=== PATIENT | female | born 1940 | race Caucasian/White ===

== ENCOUNTER 2023-04-13 12:07 | Outpatient (OUT) | payer MEDICARE, OTHER, SELFPAY ==
[2023-04-14 04:07] LABS: Vitamin B12 649 pg/mL (232-1245)
== END 2023-04-13 12:08 | disposition home or self-care (01) ==
LOC: LAB 12:07
PROVIDERS: PCP Family Medicine; Visit Provider Nurse Practitioner Adult Health
DX: F03.C2 Unspecified dementia, severe, with psychotic disturbance (principal)
CPT/HCPCS: 36415; 82607; 82746

== ENCOUNTER 2023-05-28 23:49 | Emergency (ER) | payer MEDICARE, OTHER, SELFPAY ==
[2023-05-28 23:55] VITALS: BP 188/96; PULSE 74; RESP 16; TEMP 36.1; O2SAT 96; BMI 26.6
--- NOTE | 2023-05-29 00:07 | ED_ITS ---
HPI - Altered Mental Status General Chief Complaint: Altered Mental Status Stated Complaint: altered mental state Time Seen by Provider: 05/29/23 00:07 History of Present Illness HPI narrative: Patient presents to emergency department for complaint of confusion. Family brings the patient in stating that she has a history of dementia. She states in the last 3 weeks she has seen Dr. Kelly for insomnia, and paranoia. She used to take Ativan 5 mg twice a day and wasn't working so she was switched to Seroquel 25 mg twice a day. Patient has been taking that she seems to be able to sleep about every other night but then every other night they find her wandering around to her son's house in the middle the night. Incident starts when the patient thinks that her is not her and is a member to the house trying to sleep with her. The patient gets angry, aggressive, agitated and subsequently takes off to her son's house. Family is concerned because she was wondering today and the son was not even in the house where she was having. The patient does not think that his immunizations. She does not have any somatic complaints. Has not been sick with anything recently. MD complaint: Reports altered mental status Related Data Previous Rx's Medication Instructions Recorded olanzapine 10 mg tablet (Zyprexa) 10 mg PO QPM #20 tabs 05/29/23 olanzapine 10 mg tablet (Zyprexa) 10 mg PO QPM #20 tabs 05/29/23 Allergies Allergy/AdvReac Type Severity Reaction Status Date / Time No Known Drug Allergies Allergy Verified 05/28/23 23:58 Review of Systems ROS Status of ROS 10 or more systems reviewed and unremarkable except as noted in history and below Exam Narrative Exam Narrative: Nurses notes and vital signs reviewed and patient is not hypoxic. General: Nontoxic, Well-appearing and in no apparent distress. Skin: Warm, dry, no pallor noted. No Rash Head: Normocephalic, atraumatic. Neck: Supple, non-tender. Eye: Pupils are equal, round and EOMI. No scleral icterus. Ears, Nose, Mouth, and Throat: TM clear, no posterior oropharynx erythema or nasal mucosal hypertrophy, uvula is mid-line Oral mucosa is moist Cardiovascular: Regular Rate and Rhythm without murmur, gallop or rub. Respiratory: No accessory muscle use or respiratory distress. Lungs are clear to auscultation, no wheezing, rales or rhonchi Chest Wall: no tenderness Back: No midline thoracic or lumbar vertebral tenderness. No CVA tenderness Musculoskeletal: normal ROM, no calf or popliteal tenderness, no lower extremity edema/swelling GI: Abdomen is soft, non-distended. Normal bowel sounds. No masses appreciated. No tenderness to palpation. No rebound, guarding, or rigidity noted. Neurological: A&O x2. No cranial nerve dysfunction observed. No truncal agustin rico. Moves all extremities. Sensation intact. Psychiatric: Cooperative and interactive. Normal mood and affect. Constitutional Vital Signs, click to edit/add: Last Vital Signs Temp 97.0 F L 05/28/23 23:55 Pulse 74 05/28/23 23:55 Resp 16 05/28/23 23:55 BP 188/96 H 05/28/23 23:55 Pulse Ox 96 05/29/23 03:44 O2 Del Method Room Air 05/29/23 03:44 Course Vital Signs Vital signs: Vital Signs Temperature 97.0 F L 05/28/23 23:55 Pulse Rate 74 05/28/23 23:55 Respiratory Rate 16 05/28/23 23:55 Blood Pressure 188/96 H 05/28/23 23:55 Pulse Oximetry 96 05/28/23 23:55 Oxygen Delivery Method Room Air 05/28/23 23:55 Temperature 97.0 F L 05/28/23 23:55 Pulse Rate 74 05/28/23 23:55 Respiratory Rate 16 05/28/23 23:55 Blood Pressure 188/96 H 05/28/23 23:55 Pulse Oximetry 96 05/29/23 03:44 Oxygen Delivery Method Room Air 05/29/23 03:44 MDM - Altered Mental Status MDM Narrative Medical decision making narrative: Labs studies were done. Patient has trace leukocyte esterase without any other symptoms. We will send this for culture. Patient was given 1 mg of Ativan by mouth and 75 mg of Seroquel 2 at least increase one of the dosages to 100 mg. Patient remains awake without any somnolence. She is cooperative. We will give the patient some Zyprexa see if that helps her sleep. That hopefully she will be discharged with one of these medications to take at home to see neurology on Tuesday morning and her family doctor. At this time the patient is without objective evidence of an acute process requiring hospitalization or inpatient management. The patient has remained hemodynamically stable. No additional indication for emergent studies at this time. I answered all questions. Discussed discharge instructions including standard anticipatory guidance and what should prompt a return to the emergency department, including if they get worse are not getting better or develops any new or concerning symptoms. I've given them specific time frame in which to follow-up, and who to follow-up with. The patient demonstrates understanding. Patient is nontoxic and stable for discharge with outpatient follow-up. This note was created with the assistance of a speech recognition program. Although the intention is to generate documents that actually reflects the content of the visit, no guarantees can be provided that every mistake has been identified and corrected by editing. Differential Diagnosis Differential diagnosis: Likely dementia Lab Data Attestation: I reviewed the patient's lab results. Labs: Lab Results 05/29/23 05/29/23 Range/Units 00:05 00:57 WBC 7.8 (4.0-11.0) 10^3/uL RBC 4.41 (4.20-5.40) 10^6/uL Hgb 13.4 (12.0-16.0) g/dL Hct 41.9 (36.0-48.0) % MCV 95.0 (81.0-99.0) fL MCH 30.4 (26.7-34.0) pg MCHC 32.0 (29.9-35.2) g/dL RDW 12.5 (11.0-15.0) % Plt Count 214 (150-450) 10^3/uL MPV 10.3 (9.5-13.5) fL Neut % (Auto) 62.5 (43.0-75.0) % Lymph % (Auto) 27.4 (20.5-60.0) % Travis % (Auto) 8.8 (1.7-12.0) % Eos % (Auto) 0.8 L (0.9-7.0) % Baso % (Auto) 0.4 (0.2-2.0) % Neut # (Auto) 4.9 (1.4-6.5) 10^3/uL Lymph # (Auto) 2.1 (1.2-3.8) 10^3/uL Travis # (Auto) 0.7 (0.3-0.8) 10^3/uL Eos # (Auto) 0.1 (0.0-0.7) 10^3/uL Baso # (Auto) 0.0 (0.0-0.1) 10^3/uL Abs Immat Gran (auto) 0.01 (0.00-0.03) 10^3/uL Imm/Tot Granulo (auto) 0.1 (0.0-0.5) % Sodium 140 (136-145) mmol/L Potassium 3.6 (3.5-5.1) mmol/L Chloride 101 (98-107) mmol/L Carbon Dioxide 33.5 H (21.0-32.0) mmol/L Anion Gap 9.1 BUN 19.0 H (7.0-18.0) mg/dL Creatinine 0.94 (0.55-1.02) mg/dL Est GFR ( Amer) >60 (>=60) Est GFR (Non-Af Amer) 57 L (>=60) BUN/Creatinine Ratio 20.2 Glucose 103 (74-106) mg/dL Calcium 9.1 (8.5-10.1) mg/dL Total Bilirubin 0.3 (0.2-1.0) mg/dL AST 23 (15-37) U/L ALT 27 (14-59) U/L Alkaline Phosphatase 88 (46-116) U/L Troponin I High Sens 9.6 (4.0-51.3) pg/mL Total Protein 8.1 (6.4-8.2) g/dL Albumin 4.5 (3.4-5.0) g/dL Globulin 3.6 g/dL Albumin/Globulin Ratio 1.2 Urine Color Lt. yellow (YELLOW) Urine Clarity Clear (CLEAR) Urine pH 6.0 (5.0-9.0) Ur Specific Spearfish 1.020 (1.005-1.025) Urine Protein Negative (NEG/TRACE) mg/dL Urine Glucose (UA) Negative (NEGATIVE) mg/dL Urine Ketones Negative (NEGATIVE) mg/dL Urine Occult Blood Large A (NEGATIVE) Urine Nitrite Negative (NEGATIVE) Urine Bilirubin Negative (NEGATIVE) Urine Urobilinogen 0.2 (0.2-1.0) EU/dL Ur Leukocyte Esterase Small A (NEGATIVE) Urine RBC 5-10 A (0-2) #/HPF Urine WBC 0-2 A (NONE SEEN) #/HPF Ur Squamous Epith Cells Few A (NONE/RARE) #/LPF Urine Crystals None seen (None Seen) #/HPF Urine Bacteria None seen (NONE SEEN) #/HPF Urine Casts None seen (NONE SEEN) #/LPF Urine Mucus None seen (NONE SEEN) Ur Culture Indicated? No Discharge Plan Discharge Chief Complaint: Altered Mental Status Clinical Impression: Insomnia, Dementia Patient Disposition: Home, Self-Care Time of Disposition Decision: 03:26 Condition: Good Mode of Transportation: Private Vehicle Prescriptions / Home Meds: New olanzapine [Zyprexa] 10 mg tablet 10 mg PO QPM Qty: 20 0RF olanzapine [Zyprexa] 10 mg tablet 10 mg PO QPM Qty: 20 0RF Instructions: Dementia (ED), Insomnia (ED) Stand Alone Forms: Portal Instructions Referrals: Laila Galdamez MD [Primary Care Provider] - 1 week Discharge Date/Time: 05/29/23 03:45
--- NOTE | 2023-05-29 00:10 | PC.NURSE ---
patient brought in by her son. son states patient has a history of dementia but has been more confused tonight. states he found the patient walking around outside around 1130pm, states this is not like her. son states he and his siblings take care of the patients medications and she has been receiving medications like normal. patient states she has low back pain. patient provided urine sample at this time.
[2023-05-29 00:29] LABS: Bilirubin Urine NEGATIVE (NEGATIVE); Blood Urine LARGE (NEGATIVE); Clarity Urine CLEAR (CLEAR); Color Urine LT. YELLOW (YELLOW); Glucose Urine UA NEGATIVE (NEGATIVE); Ketones Urine NEGATIVE (NEGATIVE); Leukocyte Esterase Urine SMALL (NEGATIVE); Nitrite Urine NEGATIVE (NEGATIVE); Protein Urine NEGATIVE (NEG/TRACE); Urobilinogen Urine 0.2 EU/dL (0.2-1.0)
[2023-05-29 00:31] LABS: Urine Microscopic Indicated YES
[2023-05-29 00:34] LABS: Bacteria Urine NONE SEEN #/HPF (NONE SEEN); Cast Seen? NONE SEEN #/LPF (NONE SEEN); Crystals Seen? None Seen #/HPF (None Seen); Mucus Urine NONE SEEN (NONE SEEN); Squamous Epithelial Cell Urine FEW #/LPF (NONE/RARE); Urine Culture Indicated NO; WBC Urine 0-2 #/HPF (NONE SEEN)
--- NOTE | 2023-05-29 00:40 | XR_ITS ---
[address] [address] Patient Name: NANCY FRENCH MRN: [id number] date: 1940 Sex: F Assigned Patient Location: ER Current Patient Location: ED.MAIN Accession/Order Number: [id number] Exam Date: 05/29/2023 01:10 Report Date: 05/29/2023 03:31 At the request of: KERI BOSCH Procedure: XR chest 1V EXAM: XR chest 1V HISTORY: Altered mental status changes COMPARISON: Chest x-ray 02/25/2023 TECHNIQUE: Single frontal view chest x-ray FINDINGS: No lung consolidation, large pleural effusions, pneumothorax, or acute bony abnormality. Cardiac size is unremarkable. XR/XR chest 1V IMPRESSION: No radiographic evidence for acute chest abnormality. Electronically authenticated by: NIKITA MCCLELLAN Date: 05/29/2023 03:31
[2023-05-29 01:06] LABS: Basophils Percent Auto 0.4 % (0.2-2.0); Eosinophils Absolute Auto 0.1 10^3/uL (0.0-0.7); Eosinophils Percent Auto 0.8 % (0.9-7.0); Hematocrit 41.9 % (36.0-48.0); Hemoglobin 13.4 g/dL (12.0-16.0); Immature Granulocytes Abs Auto 0.01 10^3/uL (0.00-0.03); Immature Granulocytes Pct Auto 0.1 % (0.0-0.5); Lymphocytes Absolute Auto 2.1 10^3/uL (1.2-3.8); Lymphocytes Percent Auto 27.4 % (20.5-60.0); Mean Corpuscular Hemoglobin 30.4 pg (26.7-34.0); Mean Platelet Volume 10.3 fL (9.5-13.5); Monocytes Absolute Auto 0.7 10^3/uL (0.3-0.8); Monocytes Percent Auto 8.8 % (1.7-12.0); Neutrophils Absolute Auto 4.9 10^3/uL (1.4-6.5); Neutrophils Percent Auto 62.5 % (43.0-75.0); Platelet Count 214 10^3/uL (150-450); Red Blood Count 4.41 10^6/uL (4.20-5.40); Red Cell Distribution Width 12.5 % (11.0-15.0); White Blood Count 7.8 10^3/uL (4.0-11.0)
[2023-05-29 01:24] LABS: Alanine Aminotransferase 27 U/L (14-59); Albumin Globulin Ratio 1.2; Albumin Level 4.5 g/dL (3.4-5.0); Alkaline Phosphatase 88 U/L (46-116); Anion Gap 9.1; Aspartate Amino Transferase 23 U/L (15-37); BUN Creatinine Ratio 20.2; Bilirubin Total 0.3 mg/dL (0.2-1.0); Calcium 9.1 mg/dL (8.5-10.1); Carbon Dioxide 33.5 mmol/L (21.0-32.0); Chloride 101 mmol/L (98-107); Estimated GFR (African America >60 (>=60); Estimated GFR (Non-African Ame 57 (>=60); Globulin 3.6 g/dL; Glucose 103 mg/dL (74-106); Potassium 3.6 mmol/L (3.5-5.1); Sodium 140 mmol/L (136-145); Total Protein 8.1 g/dL (6.4-8.2); Troponin I High Sensitivity 9.6 pg/mL (4.0-51.3)
[2023-05-29] MEDS: QUETIAPINE FUMARATE 25 MG TABLET 75 MG PO (01:36)
[2023-05-29] MEDS: LORAZEPAM 1 MG TABLET PO (01:37)
[2023-05-29] MEDS: OLANZAPINE 10 MG VIAL IM (03:00)
[2023-05-29 03:44] VITALS: O2SAT 96
== END 2023-05-29 03:45 | disposition home or self-care (01) ==
PROVIDERS: Emergency Provider Emergency Medicine; PCP Family Medicine
DX: G47.00 Insomnia, unspecified (principal); F03.90 Unspecified dementia, unspecified severity, without behavioral disturbance, psychotic disturbance, mood disturbance, and anxiety
CPT/HCPCS: 36415; 71045; 80053; 81001; 84484; 85025; 96372; 99284

== ENCOUNTER 2023-07-24 15:16 | Emergency (ER) | payer MEDICARE, OTHER, SELFPAY ==
[2023-07-24 15:19] VITALS: BP 142/68; PULSE 65; RESP 16; TEMP 36.6; O2SAT 97; BMI 21.9
--- NOTE | 2023-07-24 15:27 | CT_ITS ---
The [address] [address] Patient Name: NANCY FRENCH MRN: [id number] date: 1940 Sex: F Assigned Patient Location: ER Current Patient Location: ER Accession/Order Number: [id number] Exam Date: 07/24/2023 15:38 Report Date: 07/24/2023 17:07 At the request of: ANN DELGADO Procedure: CT facial bones wo con EXAM: CT facial bones wo con HISTORY: fall, facial injuries COMPARISON: None. TECHNIQUE: Noncontrast CT was obtained through the maxillofacial bones. Sagittal and coronal reformats were acquired. Dose reduction techniques were achieved by using automated exposure control and/or adjustment of mA and/or kV according to patient size and/or use of iterative reconstruction technique. FINDINGS: Maxillofacial bones: There is a fracture of the left nasal bone with 0.1 cm of displacement. There is soft tissue swelling about the nose. Fracture of the nasal septum. Leftward nasal septal deviation. Leftward nasal septal spur contours the left inferior turbinate. Minimal fluid within the left maxillary sinus. Right middle turbinate kamron bullosa. Atherosclerotic vascular calcifications. Debris at the left external auditory canal most consistent with cerumen. Frontal scalp hematoma is present. The bilateral globes are intact. CT/CT facial bones wo con IMPRESSION: CT maxillofacial: 1. Fracture of the left nasal bone with 0.1 cm displacement 2. Fracture nasal septum. 3. Forehead scalp hematoma. Electronically authenticated by: BONNY LOTT Date: 07/24/2023 17:07
--- NOTE | 2023-07-24 15:27 | CT_ITS ---
[address] [address] Patient Name: NANCY FRENCH MRN: [facility]:[id number] date: 1940 Sex: F Assigned Patient Location: ER Current Patient Location: ER Accession/Order Number: [id number] Exam Date: 07/24/2023 15:38 Report Date: 07/24/2023 17:03 At the request of: ANN DELGADO Procedure: CT cervical spine wo con EXAM: CT cervical spine wo con HISTORY: fall, head injury COMPARISON: None. TECHNIQUE: CT Cervical spine without IV contrast. Coronal and sagittal reformations were performed. Dose reduction techniques were achieved by using automated exposure control and/or adjustment of mA and/or kV according to patient size and/or use of iterative reconstruction technique. FINDINGS: Osseous: The vertebral body heights are maintained. No fracture. Disc height loss and vacuum disc phenomenon and osteophytes at C5-C6 and C6-C7. Degenerative changes. Anterior arch and the dens and C1 and Soft tissues: No focal fluid collection. Nodule within the right thyroid lobe measuring 0.6 cm. Atherosclerotic vascular calcifications of the carotid arteries. Disc levels: C2-C3: No disc protrusion, spinal canal stenosis, or neural foraminal stenosis. C3-C4: Broad-based posterior disc bulge/osteophyte complex. Moderate right and moderate left facet arthrosis. Mild spinal canal stenosis. Moderate right and mild left foraminal stenosis C4-C5: Broad-based posterior disc bulge/osteophyte complex. Mild spinal canal stenosis. Mild bilateral foraminal stenosis. Moderate bilateral facet arthrosis. C5-C6: Broad-based posterior disc bulge/osteophyte complex with posterior central disc/osteophyte resulting in moderate spinal canal stenosis. Moderate right and moderate left foraminal stenosis. C6-C7: Broad-based posterior disc bulge/osteophyte complex. Severe spinal canal stenosis. Moderate right foraminal stenosis. C7-T1: No disc protrusion, spinal canal stenosis, or neural foraminal stenosis. CT/CT cervical spine wo con IMPRESSION: 1. No cervical spine fracture or subluxation. 2. Multilevel degenerative changes of the cervical spine most notably with severe spinal canal and moderate foraminal stenosis at C6/C7 as above. Electronically authenticated by: BONNY LOTT Date: 07/24/2023 17:03
--- NOTE | 2023-07-24 15:27 | CT_ITS ---
The [address] [address] Patient Name: NANCY FRENCH MRN: [id number] date: 1940 Sex: F Assigned Patient Location: ER Current Patient Location: ER Accession/Order Number: [id number] Exam Date: 07/24/2023 15:38 Report Date: 07/24/2023 17:11 At the request of: ANN DELGADO Procedure: CT head/brain wo con EXAM: CT head/brain wo con HISTORY: fall, head injury COMPARISON: CT of the head 02/25/2023. TECHNIQUE: Noncontrast CT was obtained through the head. Sagittal and coronal reformats were acquired. Dose reduction techniques were achieved by using automated exposure control and/or adjustment of mA and/or kV according to patient size and/or use of iterative reconstruction technique. FINDINGS: Mild diffuse ventricular and sulcal prominence consistent with age-related involutional change. No herniation or hydrocephalus. The cortes matter/white matter differentiation is maintained throughout. Mild periventricular regions of decreased attenuation. No CT evidence of contemporary infarction. No acute intracranial hemorrhage or parenchymal mass. Fracture of the left nasal bone. Frontal scalp hematoma extending over the right preseptal soft tissues. The globes themselves appear intact. No hemorrhage within the post septal fat. Atherosclerotic vascular calcifications. Debris at the left external auditory canal likely cerumen. CT/CT head/brain wo con IMPRESSION: 1. No acute intracranial abnormality. 2. Frontal scalp hematoma extending over the right preseptal soft tissues. 3. Left nasal bone fracture. Electronically authenticated by: BONNY LOTT Date: 07/24/2023 17:11
--- NOTE | 2023-07-24 15:32 | ECG_ITS ---
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
--- NOTE | 2023-07-24 15:33 | ED_ITS ---
HPI - General Adult General Chief complaint: Head Injury Stated complaint: Facial Pain, Nose Time Seen by Provider: 07/24/23 15:23 Source: family Mode of arrival: walk-in Limitations: no limitations Related Data Home Medications Medication Instructions Recorded Confirmed donepezil 10 mg tablet 10 mg PO DAILY 07/24/23 07/24/23 flecainide 100 mg tablet 100 mg PO BID 07/24/23 07/24/23 losartan 50 mg tablet 50 mg PO DAILY 07/24/23 07/24/23 memantine 14 mg capsule 14 mg PO Q24H 07/24/23 07/24/23 sprinkle,extended release 24hr quetiapine 50 mg tablet 50 mg PO BID 07/24/23 07/24/23 simvastatin 40 mg tablet 40 mg PO DAILY 07/24/23 07/24/23 Previous Rx's Medication Instructions Recorded olanzapine 10 mg tablet (Zyprexa) 10 mg PO QPM #20 tabs 05/29/23 olanzapine 10 mg tablet (Zyprexa) 10 mg PO QPM #20 tabs 05/29/23 Allergies Allergy/AdvReac Type Severity Reaction Status Date / Time No Known Drug Allergies Allergy Verified 05/28/23 23:58 [facility] Medical History (Updated 07/24/23 @ 17:44 by Ann Delgado) History of dementia ?Z86.59 - Personal history of other mental and behavioral disorders (ICD-10) Exam Constitutional Vital Signs, click to edit/add: Last Vital Signs Temp 97.8 F 07/24/23 15:19 Pulse 63 07/24/23 16:25 Resp 20 07/24/23 16:25 BP 132/64 07/24/23 16:25 Pulse Ox 94 L 07/24/23 16:25 O2 Del Method Room Air 07/24/23 15:19 Course Vital Signs Vital signs: Vital Signs Temperature 97.8 F 07/24/23 15:19 Pulse Rate 65 07/24/23 15:19 Respiratory Rate 16 07/24/23 15:19 Blood Pressure 142/68 H 07/24/23 15:19 Pulse Oximetry 97 07/24/23 15:19 Oxygen Delivery Method Room Air 07/24/23 15:19 Temperature 97.8 F 07/24/23 15:19 Pulse Rate 63 07/24/23 16:25 Respiratory Rate 20 07/24/23 16:25 Blood Pressure 132/64 07/24/23 16:25 Pulse Oximetry 94 L 07/24/23 16:25 Oxygen Delivery Method Room Air 07/24/23 15:19 Medical Decision Making MDM Narrative Medical decision making narrative: 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 Blood drawn and sent for evaluation. She was sent for CT scans of the head, cervical spine and facial bones. ED nurse was ordered to dress her facial wounds with topical bacitracin and we updated her tetanus. CTs revealed left nasal bone fracture and nasal septum fracture. No ICH or skull or cervical fracture noted. Blood and urine testing only revealed slightly elevated Cr. Family informed of results and patient was discharged home. Lab Data Lab results reviewed: Yes I reviewed the patient's lab results Labs: Lab Results 07/24/23 07/24/23 Range/Units 16:00 16:30 WBC 7.4 (4.0-11.0) 10^3/uL RBC 3.73 L (4.20-5.40) 10^6/uL Hgb 11.4 L (12.0-16.0) g/dL Hct 35.8 L (36.0-48.0) % MCV 96.0 (81.0-99.0) fL MCH 30.6 (26.7-34.0) pg MCHC 31.8 (29.9-35.2) g/dL RDW 12.9 (11.0-15.0) % Plt Count 234 (150-450) 10^3/uL MPV 10.6 (9.5-13.5) fL Neut % (Auto) 70.9 (43.0-75.0) % Lymph % (Auto) 20.3 L (20.5-60.0) % [place] % (Auto) 7.5 (1.7-12.0) % Eos % (Auto) 0.5 L (0.9-7.0) % Baso % (Auto) 0.7 (0.2-2.0) % Neut # (Auto) 5.3 (1.4-6.5) 10^3/uL Lymph # (Auto) 1.5 (1.2-3.8) 10^3/uL [place] # (Auto) 0.6 (0.3-0.8) 10^3/uL Eos # (Auto) 0.0 (0.0-0.7) 10^3/uL Baso # (Auto) 0.1 (0.0-0.1) 10^3/uL Abs Immat Gran (auto) 0.01 (0.00-0.03) 10^3/uL Imm/Tot Granulo (auto) 0.1 (0.0-0.5) % Sodium 143 (136-145) mmol/L Potassium 4.0 (3.5-5.1) mmol/L Chloride 105 (98-107) mmol/L Carbon Dioxide 29.7 (21.0-32.0) mmol/L Anion Gap 12.3 BUN 17.0 (7.0-18.0) mg/dL Creatinine 1.09 H (0.55-1.02) mg/dL Est GFR ( Amer) 58 L (>=60) Est GFR (Non-Af Amer) 48 L (>=60) BUN/Creatinine Ratio 15.6 Glucose 89 (74-106) mg/dL Calcium 8.7 (8.5-10.1) mg/dL Urine Color Yellow (YELLOW) Urine Clarity Clear (CLEAR) Urine pH 7.0 (5.0-9.0) Ur Specific [place] 1.020 (1.005-1.025) Urine Protein Negative (NEG/TRACE) mg/dL Urine Glucose (UA) Negative (NEGATIVE) mg/dL Urine Ketones Negative (NEGATIVE) mg/dL Urine Occult Blood Negative (NEGATIVE) Urine Nitrite Negative (NEGATIVE) Urine Bilirubin Negative (NEGATIVE) Urine Urobilinogen 1.0 (0.2-1.0) EU/dL Ur Leukocyte Esterase Negative (NEGATIVE) Imaging Data ct cervical spine: Radiologist's impression: Patient Name: NANCY FRENCH MRN: [id number] date: 1940 Sex: F Assigned Patient Location: ER Current Patient Location: ER Accession/Order Number: [id number] Exam Date: 07/24/2023 15:38 Report Date: 07/24/2023 17:03 At the request of: ANN DELGADO Procedure: CT cervical spine wo con EXAM: CT cervical spine wo con HISTORY: fall, head injury COMPARISON: None. TECHNIQUE: CT Cervical spine without IV contrast. Coronal and sagittal reformations were performed. Dose reduction techniques were achieved by using automated exposure control and/or adjustment of mA and/or kV according to patient size and/or use of iterative reconstruction technique. FINDINGS: Osseous: The vertebral body heights are maintained. No fracture. Disc height loss and vacuum disc phenomenon and osteophytes at C5-C6 and C6-C7. Degenerative changes. Anterior arch and the dens and C1 and Soft tissues: No focal fluid collection. Nodule within the right thyroid lobe measuring 0.6 cm. Atherosclerotic vascular calcifications of the carotid arteries. Disc levels: C2-C3: No disc protrusion, spinal canal stenosis, or neural foraminal stenosis. C3-C4: Broad-based posterior disc bulge/osteophyte complex. Moderate right and moderate left facet arthrosis. Mild spinal canal stenosis. Moderate right and mild left foraminal stenosis C4-C5: Broad-based posterior disc bulge/osteophyte complex. Mild spinal canal stenosis. Mild bilateral foraminal stenosis. Moderate bilateral facet arthrosis. C5-C6: Broad-based posterior disc bulge/osteophyte complex with posterior central disc/osteophyte resulting in moderate spinal canal stenosis. Moderate right and moderate left foraminal stenosis. C6-C7: Broad-based posterior disc bulge/osteophyte complex. Severe spinal canal stenosis. Moderate right foraminal stenosis. C7-T1: No disc protrusion, spinal canal stenosis, or neural foraminal stenosis. IMPRESSION: 1. No cervical spine fracture or subluxation. 2. Multilevel degenerative changes of the cervical spine most notably with severe spinal canal and moderate foraminal stenosis at C6/C7 as above. Electronically authenticated by: BONNY LOTT Date: 07/24/2023 17:03 ct facial bones: Radiologist's impression: Patient Name: NANCY FRENCH MRN: [id number] date: 1940 Sex: F Assigned Patient Location: ER Current Patient Location: ER Accession/Order Number: [id number] Exam Date: 07/24/2023 15:38 Report Date: 07/24/2023 17:07 At the request of: ANN DELGADO Procedure: CT facial bones wo con EXAM: CT facial bones wo con HISTORY: fall, facial injuries COMPARISON: None. TECHNIQUE: Noncontrast CT was obtained through the maxillofacial bones. Sagittal and coronal reformats were acquired. Dose reduction techniques were achieved by using automated exposure control and/or adjustment of mA and/or kV according to patient size and/or use of iterative reconstruction technique. FINDINGS: Maxillofacial bones: There is a fracture of the left nasal bone with 0.1 cm of displacement. There is soft tissue swelling about the nose. Fracture of the nasal septum. Leftward nasal septal deviation. Leftward nasal septal spur contours the left inferior turbinate. Minimal fluid within the left maxillary sinus. Right middle turbinate kamron bullosa. Atherosclerotic vascular calcifications. Debris at the left external auditory canal most consistent with cerumen. Frontal scalp hematoma is present. The bilateral globes are intact. IMPRESSION: CT maxillofacial: 1. Fracture of the left nasal bone with 0.1 cm displacement 2. Fracture nasal septum. 3. Forehead scalp hematoma. Electronically authenticated by: BONNY LOTT Date: 07/24/2023 17:07 CT scan - head: Radiologist's impression: Patient Name: NANCY FRENCH MRN: [id number] date: 1940 Sex: F Assigned Patient Location: ER Current Patient Location: ER Accession/Order Number: [id number] Exam Date: 07/24/2023 15:38 Report Date: 07/24/2023 17:11 At the request of: ANN DELGADO Procedure: CT head/brain wo con EXAM: CT head/brain wo con HISTORY: fall, head injury COMPARISON: CT of the head 02/25/2023. TECHNIQUE: Noncontrast CT was obtained through the head. Sagittal and coronal reformats were acquired. Dose reduction techniques were achieved by using automated exposure control and/or adjustment of mA and/or kV according to patient size and/or use of iterative reconstruction technique. FINDINGS: Mild diffuse ventricular and sulcal prominence consistent with age-related involutional change. No herniation or hydrocephalus. The corets matter/white matter differentiation is maintained throughout. Mild periventricular regions of decreased attenuation. No CT evidence of contemporary infarction. No acute intracranial hemorrhage or parenchymal mass. Fracture of the left nasal bone. Frontal scalp hematoma extending over the right preseptal soft tissues. The globes themselves appear intact. No hemorrhage within the post septal fat. Atherosclerotic vascular calcifications. Debris at the left external auditory canal likely cerumen. IMPRESSION: 1. No acute intracranial abnormality. 2. Frontal scalp hematoma extending over the right preseptal soft tissues. 3. Left nasal bone fracture. Electronically authenticated by: BONNY LOTT Date: 07/24/2023 17:11 ECG Data Interpretation: EKG interpretation: Emergency Department physician interpretation. Normal sinus rhythm at 68bpm. Normal axis, normal intervals and no ST segment elevation or depression. Discharge Plan Discharge Chief Complaint: Head Injury Clinical Impression: Closed fracture nasal bone, Contusion of face, Head injury Patient Disposition: Home, Self-Care Time of Disposition Decision: 17:44 Prescriptions / Home Meds: No Action olanzapine [Zyprexa] 10 mg tablet 10 mg PO QPM Qty: 20 0RF olanzapine [Zyprexa] 10 mg tablet 10 mg PO QPM Qty: 20 0RF donepezil 10 mg tablet 10 mg PO DAILY flecainide 100 mg tablet 100 mg PO BID losartan 50 mg tablet 50 mg PO DAILY memantine 14 mg capsule,sprinkle,ER 24hr 14 mg PO Q24H quetiapine 50 mg tablet 50 mg PO BID simvastatin 40 mg tablet 40 mg PO DAILY Instructions: Nasal Fracture (ED), Head Injury (ED), Facial Contusion (ED) Stand Alone Forms: Portal Instructions Referrals: Laila Galdamez MD [Primary Care Provider] - 1 week
[2023-07-24 16:10] LABS: Basophils Absolute Auto 0.1 10^3/uL (0.0-0.1); Basophils Percent Auto 0.7 % (0.2-2.0); Eosinophils Percent Auto 0.5 % (0.9-7.0); Hematocrit 35.8 % (36.0-48.0); Hemoglobin 11.4 g/dL (12.0-16.0); Immature Granulocytes Abs Auto 0.01 10^3/uL (0.00-0.03); Immature Granulocytes Pct Auto 0.1 % (0.0-0.5); Lymphocytes Absolute Auto 1.5 10^3/uL (1.2-3.8); Lymphocytes Percent Auto 20.3 % (20.5-60.0); Mean Corpuscular HGB Conc 31.8 g/dL (29.9-35.2); Mean Corpuscular Hemoglobin 30.6 pg (26.7-34.0); Mean Platelet Volume 10.6 fL (9.5-13.5); Monocytes Absolute Auto 0.6 10^3/uL (0.3-0.8); Monocytes Percent Auto 7.5 % (1.7-12.0); Neutrophils Absolute Auto 5.3 10^3/uL (1.4-6.5); Neutrophils Percent Auto 70.9 % (43.0-75.0); Platelet Count 234 10^3/uL (150-450); Red Blood Count 3.73 10^6/uL (4.20-5.40); Red Cell Distribution Width 12.9 % (11.0-15.0); White Blood Count 7.4 10^3/uL (4.0-11.0)
[2023-07-24 16:22] LABS: Anion Gap 12.3; BUN Creatinine Ratio 15.6; Calcium 8.7 mg/dL (8.5-10.1); Carbon Dioxide 29.7 mmol/L (21.0-32.0); Chloride 105 mmol/L (98-107); Estimated GFR (African America 58 (>=60); Estimated GFR (Non-African Ame 48 (>=60); Glucose 89 mg/dL (74-106); Sodium 143 mmol/L (136-145)
[2023-07-24 16:25] VITALS: BP 132/64; PULSE 63; RESP 20; O2SAT 94
[2023-07-24 16:47] LABS: Bilirubin Urine NEGATIVE (NEGATIVE); Blood Urine NEGATIVE (NEGATIVE); Clarity Urine CLEAR (CLEAR); Color Urine YELLOW (YELLOW); Glucose Urine UA NEGATIVE (NEGATIVE); Ketones Urine NEGATIVE (NEGATIVE); Leukocyte Esterase Urine NEGATIVE (NEGATIVE); Nitrite Urine NEGATIVE (NEGATIVE); Protein Urine NEGATIVE (NEG/TRACE); Urine Microscopic Indicated NO
[2023-07-24] MEDS: ADACEL DIPH,PERTUSS(ACELL),TET VAC/PF 0.5 ML ADULT SYRINGE IM (17:14)
[2023-07-24] MEDS: BACITRACIN 0.9 GM PACKET 1 PACKET TOPICAL (17:15)
== END 2023-07-24 17:59 | disposition home or self-care (01) ==
PROVIDERS: Emergency Provider Emergency Medicine; PCP Family Medicine
DX: S02.2XXA Fracture of nasal bones, initial encounter for closed fracture (principal); S00.83XA Contusion of other part of head, initial encounter; S09.90XA Unspecified injury of head, initial encounter; F03.90 Unspecified dementia, unspecified severity, without behavioral disturbance, psychotic disturbance, mood disturbance, and anxiety; W06.XXXA Fall from bed, initial encounter; Z23 Encounter for immunization; Z79.899 Other long term (current) drug therapy
CPT/HCPCS: 36415; 70450; 70486; 72125; 80048; 81003; 85025; 90471; 90715; 93005; 99285

== ENCOUNTER 2024-03-21 17:57 | Outpatient (REF) | payer MEDICARE, OTHER, SELFPAY ==
[2024-03-21 19:13] LABS: Basophils Percent Auto 0.7 % (0.2-2.0); Eosinophils Absolute Auto 0.1 10^3/uL (0.0-0.7); Eosinophils Percent Auto 1.5 % (0.9-7.0); Hemoglobin 11.7 g/dL (12.0-16.0); Immature Granulocytes Abs Auto 0.01 10^3/uL (0.00-0.03); Immature Granulocytes Pct Auto 0.2 % (0.0-0.5); Lymphocytes Absolute Auto 2.1 10^3/uL (1.2-3.8); Lymphocytes Percent Auto 39.5 % (20.5-60.0); Mean Corpuscular HGB Conc 30.8 g/dL (29.9-35.2); Mean Corpuscular Hemoglobin 30.5 pg (26.7-34.0); Mean Corpuscular Volume 99.2 fL (81.0-99.0); Mean Platelet Volume 11.8 fL (9.5-13.5); Monocytes Absolute Auto 0.5 10^3/uL (0.3-0.8); Monocytes Percent Auto 9.6 % (1.7-12.0); Neutrophils Absolute Auto 2.6 10^3/uL (1.4-6.5); Neutrophils Percent Auto 48.5 % (43.0-75.0); Platelet Count 189 10^3/uL (150-450); Red Blood Count 3.83 10^6/uL (4.20-5.40); Red Cell Distribution Width 13.2 % (11.0-15.0); White Blood Count 5.4 10^3/uL (4.0-11.0)
[2024-03-21 19:27] LABS: Alanine Aminotransferase 24 U/L (14-59); Albumin Globulin Ratio 1.2; Albumin Level 3.6 g/dL (3.4-5.0); Alkaline Phosphatase 73 U/L (46-116); Aspartate Amino Transferase 23 U/L (15-37); Bilirubin Total 0.4 mg/dL (0.2-1.0); Calcium 8.9 mg/dL (8.5-10.1); Chloride 107 mmol/L (98-107); Estimated GFR (African America >60 (>=60); Estimated GFR (Non-African Ame >60 (>=60); Globulin 2.9 g/dL; Glucose 73 mg/dL (74-106); Sodium 143 mmol/L (136-145); Total Protein 6.5 g/dL (6.4-8.2)
[2024-03-21 20:59] LABS: Bilirubin Urine NEGATIVE (NEGATIVE); Blood Urine NEGATIVE (NEGATIVE); Clarity Urine CLEAR (CLEAR); Color Urine LT. YELLOW (YELLOW); Glucose Urine UA NEGATIVE (NEGATIVE); Ketones Urine NEGATIVE (NEGATIVE); Leukocyte Esterase Urine MODERATE (NEGATIVE); Nitrite Urine POSITIVE (NEGATIVE); Protein Urine NEGATIVE (NEG/TRACE); Urobilinogen Urine 0.2 EU/dL (0.2-1.0)
== END 2024-03-21 17:58 | disposition home or self-care (01) ==
LOC: LAB 17:57
PROVIDERS: PCP Family Medicine; Visit Provider Nurse Practitioner Family
DX: R41.82 Altered mental status, unspecified (principal); N39.0 Urinary tract infection, site not specified
CPT/HCPCS: 36415; 80053; 81003; 85025